=== PATIENT | male | born 1990 ===

== ENCOUNTER 2017-02-11 17:52 | Emergency (ER) | payer BC ==
[2017-02-11] MEDS ORDERED: KETOROLAC TROMETHAMINE 30 MG/ML VIAL IM ONE (18:09)
[2017-02-11] MEDS ORDERED: KETOROLAC TROMETHAMINE 30 MG/ML VIAL ONE (18:11)
--- OUTSIDE RECORDS SUMMARY | 2017-02-11 18:14 | XMS REPORT | Continuity of Care Document ---
:1990 Author Organization [facility] [place] [address] Care Team Providers Name Role Phone Provider, None Per Patient Primary Care Provider Unavailable Source Comments This disclosure is being made pursuant to the [employer] program and maynot contain all information available regarding this patient.[facility] Active Allergies and Adverse Reactions No Known Allergies Current Medications Be aware that medications may not be up to date as of this document. Alwaysverify current medications with the patient. No known medications Active Problems Not on file Social History Tobacco Use Types Packs/Day Years Used Date Current Every Day Smoker Smokeless Tobacco: Current User Last Filed Vital Signs Vital Sign Reading Time Taken Blood Pressure 130/70 07/05/2016 8:49 AM CDT Pulse 60 07/05/2016 8:49 AM CDT Temperature - - Respiratory Rate 16 07/05/2016 8:49 AM CDT Height 1.854 m (6' 1") 07/05/2016 8:49 AM CDT Weight 71.215 kg (157 lb) 07/05/2016 8:49 AM CDT Body Mass Index 20.72 07/05/2016 8:49 AM CDT Oxygen Saturation - - Plan of Care Health Maintenance Due Date Last Done Comments Pneumococcal Medium Risk 19-64 yo 2011 (1 of 1 - PPSV23) Tetanus/Pertussis (1 - Tdap) 2011 Influenza Immunization (#1) 2016 HPV Vaccine ([id number]) Aged Out No longer eligible based on patient's age to complete this topic Results from Last 3 Months Not on file
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
[2017-02-11 19:35] VITALS: BP 128/64
== END 2017-02-11 18:51 | disposition home or self-care (01) ==
LOC: ER 17:52
PROC: 2W3MX1Z Immobilization of Left Lower Extremity using Splint (ICD-10-PCS; principal; 2017-02-11)
DX: S89.92XA Unspecified injury of left lower leg, initial encounter (principal); X58.XXXA Exposure to other specified factors, initial encounter; Y93.I9 Activity, other involving external motion; Y92.9 Unspecified place or not applicable